=== PATIENT | female | born 2000 | race Two or more races ===

== ENCOUNTER 2024-12-02 23:42 | Emergency (ER) | payer MEDICAID, SELFPAY ==
[2024-12-03 00:20] VITALS: BP 131/91; PULSE 109; RESP 18; TEMP 37.1; O2SAT 98
[2024-12-03 00:22] VITALS: BMI 19.1
[2024-12-03 01:55] VITALS: BP 135/85; PULSE 100; RESP 18; TEMP 37.1; O2SAT 97
--- NOTE | 2024-12-03 02:52 | EDNOTE_ITS ---
ED General RME/HPI General Chief complaint: Nausea/Vomiting/Diarrhea Stated complaint: N/V, 10 WKS Time Seen by Provider: 12/03/24 02:34 Arrival date/time: 12/02/24 23:42 RME / HPI RME / HPI narrative: 24-year-old female presents to the ED with a complaint of nausea and vomiting with inability to keep anything down. She states she is 10 weeks . She has been evaluated in the emergency department in [place] 4 times previously for the same thing. She has had 4 ultrasounds for the . She has an [facility] [employer] appointment next week. She denies any fever or chills. Related Data Previous Rx's ?Medication ?Instructions ?Recorded ibuprofen 800 mg tablet 800 mg PO TID PRN pain #30 t abs 02/05/24 Allergies Allergy/AdvReac Type Severity Reaction Status Date / Time Penicillins Allergy Verified 12/02/24 23:43 Course Vital Signs Vital signs: Vital Signs Temperature 98.7 F 12/03/24 00:20 Pulse Rate 109 H 12/03/24 00:20 Respiratory Rate 18 12/03/24 00:20 Blood Pressure 131/91 H 12/03/24 00:20 Pulse Oximetry (%) 98 12/03/24 00:20 Oxygen Delivery Method Room Air 12/03/24 00:20 Discharge Plan Prescriptions/Referrals Prescriptions/Med Rec: No Action ibuprofen 800 mg tablet 800 mg PO TID PRN (Reason: pain) Qty: 30 0RF Patient/Caregiver Discharge Instructions Print Language: [place]
[2024-12-03 04:11] VITALS: BP 139/86; PULSE 80; RESP 18; TEMP 36.8; O2SAT 97
[2024-12-03] MEDS: SODIUM CHLORIDE 0.9% 1000 ML 1,000 ML 999 ML IV (04:13)
[2024-12-03] MEDS: METOCLOPRAMIDE INJ 5 MG/ML VIAL 2 ML 10 MG IVP (04:14)
[2024-12-03 04:18] LABS: Basophils % (Auto) 0 % (0-2.5); Eosinophils % (Auto) 0 % (0-10); Hematocrit 36.9 % (36.0-46.0); Hemoglobin 12.6 g/dL (12.0-16.0); Immature Granulocytes % (Auto) 0 % (0-0); Immature Granulocytes Auto 0.04 Thou/mm3 (0.00-0.00); Lymphocytes # (Auto) 3.5 Thou/mm3 (1.0-4.8); Lymphocytes % (Auto) 28 % (10-50); Mean Corpuscular HGB Conc 34.1 g/dl (31.0-37.0); Mean Corpuscular Hemoglobin 20.5 pg (25.0-35.0); Mean Corpuscular Volume 60 fL (80-100); Monocytes # (Auto) 0.7 Thou/mm3 (0.0-0.8); Monocytes % (Auto) 6 % (0-12); Neutrophils # (Auto) 8.2 Thou/mm3 (1.8-7.7); Neutrophils % (Auto) 66 % (37-80); Nucleated Red Blood Cell % 0 /100 WBC (0); Platelet Count 424 Thou/mm3 (140-440); Red Blood Count 6.14 Miln/mm3 (4.00-5.20); White Blood Count 12.4 Thou/mm3 (3.6-11.0)
[2024-12-03 04:45] LABS: Path Review Blood Smear Sent to Pathologist
[2024-12-03 05:32] LABS: Alanine Aminotransferase 36 U/L (10-49); Albumin, Serum 4.8 gm/dL (3.5-5.0); Albumin/Globulin Ratio 1.2 (1.2-2.2); Alkaline Phosphatase 101 U/L (46-116); Amylase 151 U/L (30-118); Anion Gap 16 (7-16); Aspartate Amino Transferase 20 U/L (0-34); BUN/Creatinine Ratio 22 Ratio (12-20); Beta HCG,Quantitative 129457 mIU/mL (<5.0); Blood Urea Nitrogen 11 mg/dL (9-23); Chloride 100 mMol/L (98-107); Creatinine (Component) 0.5 mg/dL (0.6-1.3); Estimated Creatinine Clearance 174.3 mL/min (>60); Globulin 3.9 gm/dL (2.3-3.5); Glucose 116 mg/dL (74-106); Lipase 33 U/L (12-53); Osmolality,Calculated 277 (275-295); Potassium 3.7 mMol/L (3.4-5.1); Sodium 139 mMol/L (136-145); Total Protein 8.7 gm/dL (5.7-8.2); eGFR > 60 See Note
[2024-12-03 06:51] VITALS: BP 130/81; PULSE 74; RESP 18; TEMP 37.1; O2SAT 100
--- NOTE | 2024-12-03 07:08 | PC.NURSE ---
Patient resting comfortably with eyes closed at this time.
[2024-12-03 07:54] LABS: Collection Type, Urine Clean Catch
[2024-12-03 08:14] VITALS: BP 122/86; PULSE 76; RESP 18; TEMP 36.9; O2SAT 97
[2024-12-03 08:24] LABS: Bacteria,Urine 1+; Bilirubin,Urine Negative (Negative); Blood,Urine Trace (Negative); Clarity,Urine Turbid (Clear/Hazy); Color,Urine Yellow (Lt Yel-Yel); Glucose, Urine Trace (Negative); Ketones,Urine 4+ (Negative); Leukocyte Esterase,Urine Positive (Negative); Nitrite,Urine Negative (Negative); Protein,Urine 2+ (Neg - Trace); RBC,Urine 14 /hpf (0-3); Specific Gravity,Urine 1.033 (1.001-1.035); Squamous Epithelial Cell,Urine 7 /hpf (0-5); Transitional Epi Cells,Urine < 1 /hpf (0-5); Urobilinogen,Urine Negative mg/dL (0.0-1.0); WBC,Urine 56 /hpf (0-5)
--- NOTE | 2024-12-03 09:00 | PD.EDADDENDU ---
Emergency Room Addendum Addendum Narrative: 0600: Care assumed from my colleague Tiana Bruce. Past medical, surgical, social and family history reviewed. Vitals and home medications reviewed. Results and treatment plan discussed. I will assume the care of the patient at this time and will follow the patient, pending urine results. 0902: Patient will be discharged with UTI and hyperemesis gravidarum.
[2024-12-03 09:21] VITALS: PULSE 88; RESP 18; TEMP 36.8; O2SAT 97
== END 2024-12-03 09:23 | disposition home or self-care (01) ==
PROVIDERS: Physician Assistant; Emergency Provider Emergency Medicine; PCP Obstetrics & Gynecology
DX: O21.0 Mild hyperemesis gravidarum (principal); O23.41 Unspecified infection of urinary tract in pregnancy, first trimester; N39.0 Urinary tract infection, site not specified; Z3A.10 10 weeks gestation of pregnancy
CPT/HCPCS: 36415; 80053; 81001; 82150; 83690; 84702; 85025; 87086; 96361; 96374; 99284; J2765; J7030